=== PATIENT | female | born 1980 | race Caucasian/White ===

== ENCOUNTER 2022-01-09 00:39 | Emergency (ER) | payer OTHER, SELFPAY ==
[2022-01-09 00:43] VITALS: BP 118/79; PULSE 87; RESP 18; TEMP 36.7; O2SAT 100; BMI 34.9
--- NOTE | 2022-01-09 07:04 | ED_ITS ---
HPI - Animal Bite General Chief Complaint: Skin/Abscess/Foreign Body Stated Complaint: bite 3 days ago ?infected Time Seen by Provider: 01/09/22 06:38 Source: patient Mode of arrival: ambulatory Limitations: no limitations History of Present Illness HPI narrative: patient states I don't like hospitals so I didn't seek care and they made me wait outside. complaint: animal bite Onset (ago): day(s) (started last ) Animal: dog Description of animal: household pet Mechanism: bite Location - Extremities: left: lower leg Pain description: constant Context: other (bit by own dog her dog is UTD on rabies vaccine) Associated symptoms: other (worsening rash and redness) Treatments prior to arrival: wound dressing(s) and antibiotic ointment Related Data Allergies Allergy/AdvReac Type Severity Reaction Status Date / Time No Known Allergies Allergy Verified 01/09/22 00:44 Review of Systems Review of Systems: Constitutional : pos Fever, pos Chills ENT/Mouth : No sore throat, No Rhinorrhea Eyes: No Eye Pain, No Swelling, No Redness Cardiovascular : No Chest Pain, No SOB Respiratory : No Cough, No Sputum Gastrointestinal : No Nausea, No Vomiting, No Diarrhea, No abdominal Pain Genitourinary : No Dysuria, No Hematuria Musculoskeletal : No joint pain, No Myalgias, No Joint Swelling Skin : No Skin Lesions, positive skin rash Neuro : No Weakness, No Numbness, No Headache Psych : No Anxiety, No Depression Heme/Lymph: No Bruising, No Bleeding,No Lymphadenopathy Endocrine : No Polyuria, No Polydipsia All other systems reviewed and are negative [facility] Past Medical History Attestation statement: The following information was validated with the patient. Medical History Hyperlipidemia Hypothyroidism Social History Social History (Updated 01/09/22 @ 07:21 by Renu Stuart DO) Patient Tobacco Use Status: Never used Tobacco Advance Directives: No Advance Directives Information Provided: No Physical Exam ED Vital Signs: Vital Signs - 24 hr 01/09/22 00:43 Temperature 98.0 F Pulse Rate 87 Respiratory Rate 18 Blood Pressure 118/79 Pulse Oximetry 100 BMI result Body Mass Index 34.9 Appearance: Alert. Oriented X3. No acute distress. Patient very agitated she had to wait, initially refusing to exchange underwriting consultant, I apologized for the wait but she is persistent and still angry. Finally agrees to exchange underwriting consultant for IV and so that we can keep an eye on the leg infection. I don't like hospitals, that's why I don't come here. Eyes: Pupils equal, round and reactive to light. ENT: Pharynx normal. Neck: Normal inspection. Neck supple. CVS: Pulses normal. Respiratory: No respiratory distress. Abdomen: atrumatic Skin: Skin warm and dry. Normal skin color. Normal skin turgor. Extremities: No lower extremity edema. L calf posterior/medial puncture wound noted with yellow bloody/ss drainage that is thin I cannot express fluid with palpation and I do not feel a fluctuant area or a pocket of fluid - surrounding large confluent area from distal calf to knee area with warmth and ttp/erythema Neuro: Oriented X 3. No motor deficit. No sensory deficit. Course Course Course Narrative: RN states she went to obtain labs and start medications and room was empty with gown on the bed MDM - Animal Bite MDM Narrative Medical decision making narrative: 41 yo female with hx of HLD, hypothyroidism UTD on tetanus shot. Bit by her own dog who is UTD with rabies shots on - bit on left calf. The calf is infected and will require IV antibiotics along with labs. Plan would be to admit for IV antibiotics but the patient on interview and presentation is very agitated and upset about the wait time and why a nurse couldn't treat her. Labs, cultures, IV zosyn and IV vancomycin have been ordered. If the patient plans to leave AMA will order augmentin and doxycycline. Discharge Plan Discharge Clinical Impression: Cellulitis, Dog bite Patient Disposition: Elopement
--- NOTE | 2022-01-09 08:04 | PC.NURSE ---
ATTEMPTED TO START IV, DRAW LABS AND MEDICATE PATIENT. PT WAS NOT IN ROOM UPON MY ARRIVAL. HOSPITAL GOWN ON STRETCHER. NO PATIENT BELONGINGS IN ROOM
== END 2022-01-09 08:05 | disposition left against medical advice (07) ==
PROVIDERS: Emergency Provider Emergency Medicine; PCP Urology
DX: S80.872A Other superficial bite, left lower leg, initial encounter (principal); L03.116 Cellulitis of left lower limb; W54.0XXA Bitten by dog, initial encounter; Y93.9 Activity, unspecified; Y92.9 Unspecified place or not applicable; Y99.9 Unspecified external cause status
CPT/HCPCS: 99281

== ENCOUNTER 2022-03-17 13:45 | Outpatient (REF) | payer OTHER, SELFPAY ==
[2022-03-17 14:55] LABS: Albumin Level 4.2 g/dL (3.5-5.0); Calcium 9.3 mg/dL (8.4-10.2)
[2022-03-17 15:22] LABS: Vitamin D 25-OH Total 30.7 ng/mL (>30)
[2022-03-21 15:52] LABS: Calcium (PTHI) 9.3 mg/dL (8.6-10.2); PTHI 55 pg/mL (16-77)
== END 2022-03-17 13:46 | disposition home or self-care (01) ==
LOC: HO.LAB 13:45
PROVIDERS: Visit Provider Internal Medicine Endocrinology, Diabetes & Metabolism
DX: E21.3 Hyperparathyroidism, unspecified (principal)
CPT/HCPCS: 36415; 82040; 82306; 82310; 83970

== ENCOUNTER 2022-04-28 09:03 | Outpatient (REF) | payer OTHER, SELFPAY ==
[2022-04-28 10:39] LABS: Free T4 (Free Thyroxine) 0.97 ng/dL (0.71-1.85); Thyroid Stimulating Hormone 1.76 uIU/mL (0.32-4.0)
== END 2022-04-28 09:04 | disposition home or self-care (01) ==
LOC: HO.LAB 09:03
PROVIDERS: PCP Internal Medicine; Visit Provider Internal Medicine Endocrinology, Diabetes & Metabolism
DX: E03.9 Hypothyroidism, unspecified (principal)
CPT/HCPCS: 36415; 84439; 84443